=== PATIENT | male | born 1955 | race Caucasian/White ===

== ENCOUNTER 2017-06-23 08:04 | Inpatient (IN) | payer BC ==
[2017-06-23] MEDS ORDERED: LR 1,000 ML IV ONE (08:21)
[2017-06-23] MEDS ORDERED: BUPIVACAINE/EPI 0.5% 30 ML SDV ONE (09:55)
[2017-06-23] MEDS ORDERED: MIDAZOLAM 2 MG/2 ML VIAL IVP ONE (10:10)
[2017-06-23] MEDS ORDERED: PROPOFOL/EMULSION 500 MG/50 ML BOTTLE IV ONE (10:18)
[2017-06-23] MEDS ORDERED: fentaNYL 100 MCG/2 ML INJ ONE (10:19)
--- NOTE | 2017-06-23 11:12 | PDHPUP ---
History & Physical Update H&P update statement: This history and physical update is based on an assessment of the patient which was completed after admission or registration (within 24 hours), but prior to the surgery/procedure. H&P update: no change in patient's condition since H&P completed
[2017-06-23] MEDS ORDERED: KETAMINE 200 MG/20 ML VIAL ONE (11:25)
[2017-06-23] MEDS ORDERED: PROMETHAZINE HCL 25 MG/ML INJ IVP PRN ×2 (11:46→15:53)
[2017-06-23] MEDS ORDERED: HYDROmorphONE/DILAUDID 1 MG/ML INJ IVP PRN (11:46)
[2017-06-23] MEDS ORDERED: epHEDrine SULFATE 10 MG/ML SYR IVP PRN (11:46)
[2017-06-23] MEDS ORDERED: ONDANSETRON 4 MG/2 ML VIAL IVP PRN ×2 (11:46→15:53)
[2017-06-23] MEDS ORDERED: DEXAMETHASONE 4 MG/ML VIAL IVP PRN (11:46)
[2017-06-23] MEDS ORDERED: ALBUTEROL 3 ML DEYVIAL IH PRN (11:46)
[2017-06-23] MEDS ORDERED: NALOXONE HCL 0.4 MG/ML INJ IVP PRN ×3 (11:46→15:54)
--- NOTE | 2017-06-23 11:46 | PDANEPAE ---
ANE History of Present Illness here for radical prostatectomy ANE Past Medical History - Cardiovascular History Hx Hypertension: No Hx Arrhythmias: No Hx Chest Pain: No Hx Coronary Artery / Peripheral Vascular Disease: No Hx CHF / Valvular Disease: No Hx Palpitations: No - Pulmonary History Hx COPD: No Hx Asthma/Reactive Airway Disease: No Hx Recent Upper Respiratory Infection: No Hx Oxygen in Use at Home: No Hx Sleep Apnea: No Sleep Apnea Screening Result - Last Documented: Negative - Neurologic History Hx Cerebrovascular Accident: No Hx Seizures: Yes Hx Dementia: No Neurologic History Comment: seizure post being struck in back while playing football 1981 - Endocrine History Hx Diabetes: No - Renal History Hx Renal Disorders: No - Liver History Hx Hepatic Disorders: No - Neurological & Psychiatric Hx Hx Neurological and Psychiatric Disorders: No Neurological / Psychiatric History Comment: sciatica - Cancer History Hx Cancer: No - Congenital Disorder History Hx Congenital Disorders: No - GI History Hx Gastrointestinal Disorders: No - Other Health History Other Health History: none - Chronic Pain History Chronic Pain: No - Surgical History Prior Surgeries: none ANE Review of Systems Review of systems is: negative Review of Systems: - Exercise capacity Exercise capacity: >=4 METS METS (RN): 4 METS ANE Patient History - Allergies Allergies/Adverse Reactions: No Known Allergies Allergy (Verified 06/09/17 11:16) - Home Medications Home medications: home medication list seen and reviewed Home Medications: NK [No Known Home Meds] 06/09/17 [Last Taken Unknown] - NPO status NPO Since - Liquids (Date): 06/22/17 NPO Since - Liquids (Time): 23:00 NPO Since - Solids (Date): 06/22/17 NPO Since - Solids (Time): 23:30 - Anes Hx Anes Hx: no prior problems - Smoking Hx Smoking Status: Never smoked - Family Anes Hx Family Hx Anesthesia Complications: none ANE Labs/Vital Signs - Vital Signs Vital Signs: reviewed preoperatively; see RN documention for details Blood Pressure: 127/76 Heart Rate: 69 Respiratory Rate: 16 O2 Sat (%): 93 Height: 177.8 cm Weight: 70.307 kg ANE Physical Exam - Airway Neck exam: FROM Mallampati Score: Class 1 - Pulmonary Pulmonary: no respiratory distress - Cardiovascular Cardiovascular: regular rate and rhythym - ASA Status ASA Status: II ANE Anesthesia Plan Anesthesia Plan: general endotracheal anesthesia
[2017-06-23] MEDS ORDERED: HYDROmorphONE/DILAUDID 2 MG/ML INJ ONE (11:47)
[2017-06-23] MEDS ORDERED: cefOXitin SODIUM 2 GM in STERILE WATER INJ 21 ML IV ONE (12:00)
[2017-06-23] MEDS ORDERED: THROMBIN(HUM PLAS)/FIBRINOG/CA 5 ML VIAL TP ONE (13:37)
[2017-06-23] MEDS ORDERED: SUGAMMADEX SODIUM 200 MG/2 ML VIAL IVP ONE (15:10)
--- NOTE | 2017-06-23 15:41 | POSTANESTH ---
Post Anesthetic Evaluation Cardiovascular Status: Normal, Stable Respiratory Status: Normal, Stable Level of Consciousness/Mental Status: Can Participate in Eval Pain Control: Adequate, Prn Tx Ordered Nausea/Vomiting Control: Adequate, Prn Tx Ordered Complications Possibly Related to Anesthesia: None Noted
[2017-06-23] MEDS ORDERED: MEPERIDINE 25 MG/ML SYR ONE (15:42)
[2017-06-23] MEDS: MEPERIDINE 25 MG/ML SYR IVP PRN ×2 (15:42→15:46)
[2017-06-23] MEDS ORDERED: LIDOCAINE 2% JELLY 5 ML TUBE TP PRN (15:53)
[2017-06-23] MEDS ORDERED: HYDROmorphONE/DILAUDID 6 MG/30 ML PCA IV PRN (15:54)
--- NOTE | 2017-06-23 15:57 | POSTOPPROG ---
Post Op Note Date of Operation: 06/23/17 Surgeon: Mejia Brownlee (# [id number]) Hairspring Ii Inspector: Shirley Tripathi CFA Anesthesia: GET(General Endotracheal) Pre-op Diagnosis: Prostate cancer Procedure: Robotic radical prostatectomy + bilateral PLND Findings: See op note Inf/Abcess present in the surg proc area at time of surgery?: No EBL: 50-100 (100 cc) Complications: None Drains: Zan Saxena (10 Flat) Specimen(s): 1. Right posterior prostate base margin for frozen section 2. Posterior BN margin 3. Anterior BN margin 4. Right pelvic lymph nodes 5. Left pelvic lymph nodes 6. Prostate + SV's
[2017-06-23] MEDS: D5W 1/2 NS 1,000 ML IV SCH (16:57)
[2017-06-23] MEDS: cefOXitin SODIUM 2 GM in STERILE WATER INJ 21 ML IV SCH (18:17)
--- NOTE | 2017-06-23 23:36 | GOP ---
[f rep st] OPERATIVE REPORT DATE OF OPERATION: 06/23/2017 SURGEON: Mejia Brownlee MD ENCEPHALOGRAPHER: Shirley Tripathi CFA ANESTHESIA: General endotracheal. PREOPERATIVE DIAGNOSIS: Prostate adenocarcinoma. POSTOPERATIVE DIAGNOSIS: Prostate adenocarcinoma. PROCEDURE PERFORMED: Robotically-assisted laparoscopic radical prostatectomy and bilateral pelvic lymphadenectomy. FINDINGS: 1. Clinically localized prostate cancer with no gross evidence of extraprostatic or metastatic disease. 2. Plane between posterior prostate and the anterior rectum was abnormally fused, likely due to post-biopsy inflammatory changes rather than cancer. SPECIMENS: 1. Right posterior prostate base margin for frozen section. 2. Posterior bladder neck margin. 3. Anterior bladder neck margin. 4. Right pelvic lymph node package. 5. Left pelvic lymph node package. 1. Prostate with attached seminal vesicles. 6. ESTIMATED BLOOD LOSS: Approximately 100 cc. INDICATIONS: This gentleman was recently diagnosed with clinically localized prostate adenocarcinoma. He presents for definitive surgical management at this time. The indications for the procedures as well as potential risks and complications were discussed with the patient preoperatively. He appeared to understand, his questions were answered, and he wished to proceed. Written informed surgical consent was thereafter obtained. DESCRIPTION OF PROCEDURE: The patient was brought to the operating room and administered general endotracheal anesthesia. He was carefully placed in the low-lithotomy position on the operating table utilizing Jacob stirrups. The abdomen and genitalia were sterilely prepped and draped in standard fashion utilizing Ioban. A Park catheter was placed sterilely on the field to bag drainage. A Veress needle was used to obtain intraabdominal access and insufflation to 15 mmHg pressure was performed with the insertion point being approximately 2 cm above the umbilicus in the midline. A 12 mm laparoscopic port was placed at this location and proper intraabdominal placement was confirmed with the robotic camera. I then marked out my other port sites which were as follows: An 8 mm left lower quadran robotic port approximately 2 cm below the umbilicus and 12 cm lateral; an 8 mm right lower quadrant robotic port 2 cm below the umbilicus in the midline and 7.5 cm lateral; an 8 mm robotic port placed approximately 8 cm lateral to the right lower quadrant port and nearly in the same transverse line as the umbilicus; and a 12 mm orthopedic assistant port placed in left upper quadrant along the lateral edge of the rectus muscle. All these ports were placed under direct vision without complication. The patient was then placed in approximately 27-degrees Trendelenburg position and the robot was docked between the patient's legs. All the appropriate robotic arms were secured to the respective ports. The 0-degree 12 mm robotic camera was used throughout the remainder of the case. I then left the patient's bedside and entered the surgeon's robotic console. I began the robotic portion of the procedure by carefully mobilizing the left colon off the lateral abdominal wall where it was overlying the iliac vessels and spermatic cord. This was done in order to gain better visualization of the prerectal space. The small incision in the posterior peritoneum was then made transversely with monopolar scissors in the midline approximately 1.5 cm above the rectum. A gentle spreading motion was then used to identify the location of the seminal vesicles and vas deferens. The vas deferens were dissected free and transected approximately 2 cm from their insertion at the base of the prostate. The seminal vesicles were carefully dissected free from the surrounding tissue. The tips to the seminal vesicles, which were adherent to the vascular pedicle of these structures, were ligated with Hem-o-el clips and divided with scissors. Once the seminal vesicles and ejaculatory ducts were free, a transverse incision was made through Denonvilliers' fascia just below the prostate in the midline. This incision was carried transversely in order to carefully separate the rectum posteriorly from the prostate anteriorly. Gentle blunt dissection was performed carefully and carried towards the prostatic apex as far as possible. This dissection was more difficult than usual as it appeared the rectum was abnormally stuck to the prostate. I decided to complete this dissection in an anterior approach. I then turned to an anterior dissection for the remainder of the operation. The anterior peritoneum was incised lateral to the obliterated umbilical ligaments high along the anterior abdominal wall on each side. Monopolar scissors were then used to carry this incision through the anterior peritoneum back toward the intersection with the vas deferens, staying somewhat parallel to the obliterated umbilical ligaments. The obliterated umbilical ligaments were then ligated with bipolar cautery and divided with scissors. These incisions through the obliterated umbilical ligaments were then connected by making a transverse incision through the anterior peritoneum high along the anterior abdominal wall with monopolar scissors. I then used gentle spreading motion to drop the bladder and effectively enter the retropubic space of Retzius. The endopelvic fascia was identified on both sides and incised with scissors lateral to the prostate on each side. This incision through the endopelvic fascia was extended from the base of the prostate to the apex with scissors. The levator ani muscles were carefully teased off the prostate with gentle blunt dissection bilaterally. The dorsal vein complex was then carefully dissected free from the surrounding tissue. The puboprostatic ligaments were transected sharply with scissors under direct vision. Two separate 0 Vicryl stick tie sutures were then used to ligate the dorsal vein complex while staying distal to the prostate and above the urethra. A slip knot technique was utilized for both of these sutures. The bladder neck dissection was then performed next. This was done in a bladder neck sparing fashion using monopolar scissors. I carried this incision in the midline down towards the urethra. The urethra was identified and transected with monopolar scissors. The posterior wall of the bladder neck was incised sharply under direct vision. I continued my dissection posteriorly and laterally in order to separate the base of the prostate from the posterior aspect of the bladder. It should be mentioned that this dissection was more tedious on the right side than usual. The plane on the right side was less well visualized between the prostatic base and the posterior bladder. As I carried my dissection more posteriorly in the midline, I was able to identify the previously dissected seminal vesicles and ejaculatory ducts. These were pulled up anteriorly. I then performed an interfascial nerve-sparing dissection on the left side of the prostate with cold scissors dissection. The neurovascular bundle was carefully teased off the prostate with gentle blunt dissection after incising the fascia. The pedicle to the prostate was then ligated with a series of Hem-o-el clips and divided with scissors. Care was taken to ensure that the prostate base was not violated during the dissection from the posterior bladder on the left side. On the right side, again the plane between the posterior bladder and the prostatic base was not as well visualized. In the midline along the lower aspect of the prostate posteriorly, I carefully the rectum off the prostate with sharp scissors dissection. Again, as was noted posteriorly, this plane was not as easy to develop. It appeared that this plane was more fused than normal. Ultimately, I was able to completely separate the anterior rectal wall off the prostate without violation of the rectum. On the right side of the prostate, an intrafascial nerve-sparing dissection was performed with cold scissors dissection, extending from the base of the prostate towards the apex. I then ligated the right prostatic pedicle with a series of Hem-o-el clips and divided it with scissors. The posterior dissection had been completed by this point. The remaining portion of the neurovascular bundle on the right side was carefully dissected off the prostate with blunt dissection and left out of harm' s way. I then carefully inspected the posterior bladder on the right side, just lateral and posterior to the bladder neck. There appeared to be some thickening of the tissue and possibly some retained prostate. I sharply dissected this tissue off the bladder carefully, taking care not to perforate the bladder with this dissection. I sent this specimen to Pathology for frozen section. It was labeled right posterior prostate base margin. Dr. Mejia from Pathology determined that there were prostate glands in this tissue that were benign. Once this information was received, I then dissected any remaining thickened-appearing tissue from the posterior bladder neck extending on each side of the midline approximately 1 cm. This dissection was performed carefully to ensure that the bladder was not perforated during this process. This additional specimen was sent separately as a posterior bladder neck margin for permanent histologic examination. At this point visually, there was no remaining nonbladder-type tissue attached to the serosal surface of the posterior bladder neck, or anywhere else around the bladder neck circumferentially. The apical dissection of the prostate was then performed. This was done with monopolars scissor dissection. The dorsal vein complex was ligated with bipolar cautery and divided with scissors. The urethra was then identified distal to the prostatic apex. I tried to spare as much of the urethral length as possible while not compromising the apical prostatic margin. The urethra was then completely transected and any remaining rectourethralis muscle was sharply divided with scissors. This completely freed the prostate at this point. It was placed in the upper abdomen to be later retrieved in a specimen bag. The pelvis was carefully inspected at this point. The rectum was noted to be intact. Neurovascular bundles on each side were also visually intact, right moreso than left due to the nature of the dissection, as detailed above. There was some slight bleeding from a couple of veins that were part of the dorsal vein complex. These were ligated successfully with an additional 0 Vicryl stick tie suture, while staying above the urethral stump. The posterior plate was then reconstructed by reapproximating the rectourethralis muscle at the level of the urethral stump to the vesicovisceral fascia along the posterior bladder. This was done with a running 3-0 Vicryl V- Loc suture. The urethrovesical anastomosis was then performed in a mucosa-to- mucosa approximating fashion with a running double-armed 3-0 Monocryl suture. After completing this anastomosis, a new 18-[place] catheter was placed in the bladder with 20 cc of sterile fluid placed in the balloon. The catheter irrigated manually and any clots that were present were removed. Approximately 150 cc of sterile fluid was placed in the bladder and no leakage was seen from the urethrovesical anastomosis. It should be mentioned that while I was performing the bladder neck reconstruction, there was a small amount of redundant mucosal tissue along the anterior aspect of the bladder neck. I excised this sharply with scissors and it was sent to Pathology for permanent histologic examination labeled anterior bladder neck. Bilateral pelvic lymphadenectomy was then performed, starting with the right side. The following limits of dissection were used: The lateral bladder wall medially, the external iliac vein laterally, the bifurcation of the common iliac vein superiorly, Andrew's ligament inferiorly, and the ilioinguinal nerve posteriorly. The lymph node package was carefully dissected free from the surrounding tissue and multiple Hem-o-el clips were used for ligation of small vessels and lymphatics. No gross obviously metastatic lymph nodes were identified. Each lymph node package was captured in a specimen bag and submitted to Pathology as a permanent specimen. Inspection of the right pelvic lymph node dissection region appeared that it was hemostatic. The iliac vessels and obturator nerve were unharmed from the dissection process. An identical lymph node dissection was then performed on the left side. Again, no grossly positive nodes were identified. The specimen was captured within a specimen bag and sent to Pathology for permanent examination. The intraabdominal pressure was then temporarily decreased to 5 mmHg and no active bleeding was seen from any of the operative sites. I did place 5 cc of Evicel along the ligated end of the dorsal vein complex and in each pelvic lymph node dissection area. The specimen was then captured in a 10 mm bag. A 10 flat Zan-Saxena drain was inserted through the left lower quadrant robotic port and draped in the pelvis. It was ultimately secured to the skin with a 2-0 silk suture and connected to bulb suction. This completed the robotic portion of the procedure. I then returned to the patient's bedside. The specimen bag was retrieved ultimately from the supraumbilical midline incision. Before completely delivering the specimen, the rectus fascia at the location of the 12 mm orthopedic assistant port site was reapproximated with an 0 Vicryl suture and a fascial closure device. The fascia at the site of the supraumbilical midline incision was then extended laterally with electrocautery in order to deliver the specimen bag. Once this was complete, the anterior rectus fascia at this location was reapproximated with a running 0 Vicryl suture. All the wounds were then irrigated thoroughly. A total of 30 cc of 0.5% Marcaine with epinephrine was used for local anesthetic. All the skin incision sites were then reapproximated running 4-0 Monocryl suture in a subcuticular fashion. The patient was then awakened, extubated, transferred to his bed, then taken to the recovery room. He tolerated the procedure well overall. COMPLICATIONS: None. DISPOSITION: He was transferred to the recovery room in stable condition. He will be admitted for postoperative care. /[id number]/MODL MTDD
[2017-06-24] MEDS: D5W 1/2 NS 1,000 ML IV SCH (00:46)
[2017-06-24] MEDS: cefOXitin SODIUM 2 GM in STERILE WATER INJ 21 ML IV SCH ×2 (02:32→10:47)
--- NOTE | 2017-06-24 09:07 | SOAPPROG ---
SOAP Progress Note Assessment/Plan: Assessment: POD 1 s/p robotic radical prostatectomy + bilateral PLND - stable. Plan: 1. Advance diet. 2. Ambulate. 3. Transition to oral narcotics this afternoon. 4. Hopeful discharge later today. Subjective: No complaints. Objective: Vital Signs Temp Pulse Resp BP Pulse Ox 36.9 C 78 16 119/69 97 06/24/17 08:10 06/24/17 08:10 06/24/17 08:10 06/24/17 08:10 06/24/17 08:10 Laboratory Results 06/24/17 03:59 06/24/17 03:59 06/23/17 06/24/17 06/25/17 05:59 05:59 05:59 Intake Total 3341 Output Total 1670 Balance 1671 Physical Exam - Physical Exam General Appearance: WD/WN, alert, no apparent distress Abdomen: non-tender, soft, other (incisions c/d/i) Male Genitalia: normal genitalia, other (urine pinkish in Park) Skin: normal color, warm/dry Extremities: non-tender, normal inspection Neuro/Psych: alert, normal mood/affect, oriented x 3 ICD10 Worksheet Patient Problems: Problems Problem Status Onset Prostate cancer Acute - ICD10 Problem Qualifiers (1) Prostate cancer
[2017-06-24] MEDS: HYDROCODONE/APAP 5/325 TAB PO PRN ×2 (12:54→16:14)
[2017-06-24 14:40] VITALS: TEMP 98.6
--- NOTE | 2017-06-24 15:55 | ASMTCMCOM ---
CM Note CM Note Notes: Pt admitted for prostatectomy. Anticipate pt will have no DC needs. Date Signed: 06/24/2017 03:54 PM Electronically Signed By:Digna Khoury LCSW
[2017-06-24 16:02] VITALS: BP 130/68; PULSE 81; RESP 17; O2SAT 94
--- NOTE | 2017-06-25 04:22 | GDS ---
[f rep st] DISCHARGE SUMMARY ADMIT DIAGNOSIS: Prostate adenocarcinoma. DISCHARGE DIAGNOSIS: Prostate adenocarcinoma. PROCEDURES: Robotically-assisted laparoscopic radical prostatectomy and bilateral pelvic lymphadenec beltran on 06/23/2017. HOSPITAL COURSE: Refer to the operative report for details regarding the procedure. Postoperatively , the patient did well. He was ambulating, tolerating a regular diet, and pain was well controlled o n oral medications by the late morning of postoperative day 1. Vital signs were stable, and he was a febrile during the postoperative period. His postoperative laboratory work was also stable. His phy sical exam was unremarkable with incisions healing appropriately and urine progressively clearing. Wanda hutson was ready for discharge on the evening of postoperative day 1. Routine activity restriction instru ctions were given. He is to continue on a regular diet. He will be given prescriptions for [place] 5 mg p.r.n. pain and Cipro 500 mg b.i.d. (the latter to begin next weekend). He will follow up in my o ffice in approximately 10 days for Park removal. /[id number]/MODL
== END 2017-06-24 19:41 | disposition home or self-care (01) | DRG 708 ==
LOC: OBSVTOIN 08:04 → F3E 08:04 → F1N 16:39
PROVIDERS: ADMIT Specialist; ATTEND Specialist
PROC: 0VT04ZZ Resection of Prostate, Percutaneous Endoscopic Approach (ICD-10-PCS; principal; 2017-06-23 09:45)
PROC: 8E0WXCZ Robotic Assisted Procedure of Trunk Region (ICD-10-PCS; principal; 2017-06-23 09:45)
PROC: 07TC4ZZ Resection of Pelvis Lymphatic, Percutaneous Endoscopic Approach (ICD-10-PCS; principal; 2017-06-23 09:45)
DX: C61 Malignant neoplasm of prostate (principal); N40.1 Benign prostatic hyperplasia with lower urinary tract symptoms; R97.20 Elevated prostate specific antigen [PSA]; R35.0 Frequency of micturition; R39.12 Poor urinary stream; Z87.442 Personal history of urinary calculi
CPT/HCPCS: J0694; J1170; J2250; J2704; J3010